=== PATIENT | male | born 1980 | race Caucasian/White ===

== ENCOUNTER 2016-08-16 13:19 | Emergency (ER) | payer OTHER ==
[2016-08-16 13:39] VITALS: RESP 16; TEMP 98.8
--- NOTE | 2016-08-16 15:16 | EDPHY ---
H & P Stated Complaint: lac/puncture to left index finger, numbness to finger HPI/ROS: CHIEF COMPLAINT: Left index finger laceration HISTORY OF PRESENT ILLNESS: Patient was cutting avocado when he accidentally cut his left index finger today. Knife slipped off of the pit of the avocado instructed on the medial aspect of the left index finger. This was a sudden onset of pain but then numbness to the area. No pain at this time is is number the site of injury. There is no numbness distal to the injury. Bleeding has been maintained with pressure. No cyanosis pallor the finger. No difficulty flexing or extending the finger. Tetanus is up-to-date as of 3 months ago. No other associated complaints or modifying factors. TIME OF INJURY: Less than 3 hours ago TETANUS STATUS: Current less than 3 months REVIEW OF SYSTEMS: Ten systems reviewed and are negative unless otherwise noted in the HPI EXAMINATION General Appearance: Alert, no distress Cardiovascular: Pulses normal throughout. Symmetric radial pulses. Brisk cap refill Neurological: A&O, sensory symmetric, strength symmetric. Two point sensation distal to the injury. Anesthesia near the laceration Skin: Warm and dry, no rash. There is a 1.5 cm laceration on the ulnar aspect of the left index finger. No bleeding noted. No foreign body. No exposure of the tendon. Extremities: Tenderness over the area laceration left index finger. Range of motion is fully intact with flexion-extension retain. Interossei strength is symmetric to the right hand. Psychiatric: Mood and affect normal MDM: 2:10 p.m. Left index finger laceration without evidence of tendon involvement. Digital block is been administered. Proceed with irrigation closure. 3:15 p.m. Laceration of left index finger. Wound has been irrigated suture repair without complication. Tolerated well. Neurovascular intact distally. Range of motion fully intact postprocedure. Wound care discussed. Follow up here in 7- 10 days for suture removal. Return sooner for signs of infection as discussed. PROCEDURE: Laceration repair Consent: Verbal Location: Left index finger, ulnar aspect Length of repair: 1.5 cm Complexity: Simple Layer involvement: Single Anesthesia: Digital block Irrigation: Extensive Debridement: None Procedure description: Following good anesthesia, the wound was copiously irrigated. Wound bed was explored and there is no foreign body noted. Wound borders were approximated well with good hemostasis. Tolerated well without complication. Suture/Staple material: 5-0 Prolene, 4 simple interrupted sutures Wound care: Routine as discussed Suture/Staple removal: 7-10 Days SUTURE STAPLE REMOVAL: 7-10 days ED Precautions: Worsening pain. Erythema, edema, cyanosis, pallor, paresthesia or anesthesia. SUPERVISION: This patient was independently evaluated without direct examination by the attending physician. Case was discussed with attending physician. Source: Patient Exam Limitations: No limitations - Personal History Current Tetanus Diphtheria and Acellular Pertussis (TDAP): Yes - Medical/Surgical History Hx Asthma: Yes Hx Chronic Respiratory Disease: No Hx Diabetes: No Hx Cardiac Disease: No Hx Renal Disease: No Hx Cirrhosis: No Hx Alcoholism: No Hx HIV/AIDS: No Hx Splenectomy or Spleen Trauma: No Other PMH: asthma, gerd - Social History Smoking Status: Never smoked Constitutional: Initial Vital Signs Temperature (C) 98.8 F 08/16/16 13:35 Heart Rate 83 08/16/16 13:35 Respiratory Rate 16 08/16/16 13:35 Blood Pressure 145/86 H 08/16/16 13:35 O2 Sat (%) 95 08/16/16 13:35 O2 Delivery Mode Room Air Allergies/Adverse Reactions: No Known Allergies Allergy (Unverified 08/16/16 13:39) Home Medications: Medication Instructions Recorded Albuterol 08/16/16 Omeprazole 08/16/16 Departure - Departure Disposition: Home, Routine, Self-Care Clinical Impression: Finger laceration Qualifiers: Encounter type: initial encounter Qualified Code(s): S61.219A - Laceration without foreign body of unspecified finger without damage to nail, initial encounter Condition: Good Instructions: Care For Your Stitches (ED), Laceration (ED) Additional Instructions: Wound care as discussed. Return here in 7-10 days for suture removal. Return sooner for signs of infection as discussed Referrals: DAVIE ACEVEDO [Other] - As per Instructions
[2016-08-16 15:59] VITALS: BP 134/78; PULSE 64; O2SAT 96
== END 2016-08-16 15:57 | disposition home or self-care (01) ==
PROC: 0HQGXZZ Repair Left Hand Skin, External Approach (ICD-10-PCS; principal; 2016-08-16)
DX: S61.211A Laceration without foreign body of left index finger without damage to nail, initial encounter (principal); J45.909 Unspecified asthma, uncomplicated; W26.0XXA Contact with knife, initial encounter